=== PATIENT | female | born 1990 | race American Indian/Alaskan Native ===

== ENCOUNTER 2017-12-28 18:25 | Emergency (ER) | payer OTHER ==
[2017-12-28 18:37] VITALS: BP 104/67
--- NOTE | 2017-12-28 21:15 | Emergency Department Report ---
- General Chief Complaint: Upper Respiratory Infection Stated Complaint: CHEST PAIN Time Seen by Provider: 12/28/17 21:10 Source: patient Mode of arrival: Ambulatory Limitations: No Limitations - History of Present Illness Initial Comments: 27-year-old female presents to the emergency room with complaint of cold symptoms since last week. Patient reports of a productive dry cough with thick mucus. She reports that she states chest discomfort when she coughs. She reported that she had body aches chills fever or sore throat nasal congestion and rhinorrhea but these have all resolved. Patient been taking [id number] Mucinex. She denies any past medical history currently takes no medications on a daily basis and has no known drug allergies. MD Complaint: cough (dry) -: week(s) (1) Severity: moderate Severity scale (0 -10): 7 Quality: burning Consistency: intermittent Improves With: nothing Context: sick contacts Associated Symptoms: fever (resolved), chills (resolved), rhinorrhea (resolved) , nasal congestion (resolved), sore throat (resolved) Treatments Prior to Arrival: "cold medicine" (mucinex) - Related Data Allergies Allergy/AdvReac Type Severity Reaction Status Date / Time No Known Allergies Allergy Unverified 12/28/17 18:34 ED Review of Systems ROS: Stated complaint: CHEST PAIN Other details as noted in HPI ENT: throat pain (resolved), congestion (resolved), other (rhinorrhea, sneezing =resolved) ED Past Medical Hx - Past Medical History Previous Medical History?: No - Surgical History Past Surgical History?: No - Social History Smoking Status: Never Smoker Substance Use Type: None ED Physical Exam - General Limitations: No Limitations General appearance: alert, in no apparent distress - Head Head exam: Present: atraumatic, normocephalic - Eye Eye exam: Present: EOMI - ENT ENT exam: Present: normal orophraynx, mucous membranes moist, TM's normal bilaterally - Neck Neck exam: Present: normal inspection, full ROM. Absent: tenderness, lymphadenopathy - Respiratory Respiratory exam: Present: normal lung sounds bilaterally. Absent: respiratory distress - Cardiovascular Cardiovascular Exam: Present: regular rate, normal rhythm. Absent: systolic murmur, diastolic murmur, rubs, gallop - Neurological Exam Neurological exam: Present: alert, oriented X3 - Psychiatric Psychiatric exam: Present: normal affect, normal mood - Skin Skin exam: Present: warm, dry, intact, normal color. Absent: rash ED Course Vital Signs 12/28/17 18:34 Temperature 98.2 F Pulse Rate 74 Respiratory 18 Rate Blood Pressure 104/67 O2 Sat by Pulse 100 Oximetry ED Medical Decision Making - Medical Decision Making Patient has been evaluated by this provider fast track. Urinalysis urine test ordered Chest x-ray ordered Critical care attestation.: If time is entered above; I have spent that time in minutes in the direct care of this critically ill patient, excluding procedure time. ED Disposition Clinical Impression: Allergic rhinitis Qualifiers: Allergic rhinitis trigger: unspecified Allergic rhinitis seasonality: unspecified Qualified Code(s): J30.9 - Allergic rhinitis, unspecified Disposition: ELOPED Is pt being admited?: No Does the pt Need Aspirin: No Condition: Undetermined Referrals: PRIMARY CARE, [Primary Care Provider] - 3-5 Days
[2017-12-28 22:06] LABS: HCG Qualitative,Urine Negative (Negative)
[2017-12-28 22:08] LABS: Bilirubin,Urine NEG (Negative); Blood,Urine NEG (Negative); Color,Urine Yellow (Yellow); Mucus,Urine FEW /HPF; Protein,Urine <15 mg/dL mg/dL (Negative)
== END 2017-12-29 03:00 | disposition left against medical advice (07) ==
LOC: ED 18:25
DX: J30.9 Allergic rhinitis, unspecified (principal)
CPT/HCPCS: 81001; 81025; 99283

== ENCOUNTER 2018-04-01 17:51 | Emergency (ER) | payer OTHER | END 2018-04-01 22:00 | disposition left against medical advice (07) | LOC: ED 17:51 ==